=== PATIENT | female | born 1990 | race Caucasian/White ===

== ENCOUNTER 2019-06-18 17:16 | Emergency (ER) | payer OTHER ==
[~2019-06-18 17:16] MED LIST: Iopamidol-370 76% 500 ML 1 ML ONE
[2019-06-18 18:23] LABS: #Basophils 0.1 thou/uL (0.0-0.2); #Eosinphils 0.1 thou/uL (0.0-0.7); #Lymphocytes 2.4 thou/uL (1.20-3.40); #Monocytes 0.7 thou/uL (0.11-0.59); #Neutrophils 9.5 thou/uL (1.40-6.50); %Basophils 0.7 % (0.0-1.0); %Eosinophils 0.5 % (0.0-10.0); %Lymphocytes 18.9 % (21.0-51.0); %Monocytes 5.1 % (0.0-10.0); %Neutrophils 74.7 % (42.0-75.0); Hemoglobin 13.4 g/dL (12.0-16.0); Mean Corpuscular HGB CONC 32.7 g/dL (32.0-36.0); Mean Corpuscular Hemoglobin 25.7 pg (27.0-31.0); Mean Corpuscular Volume 78.5 fL (78.0-98.0); Mean Platelet Volume 6.8 fL (7.4-10.4); Platelet Count 442 thou/uL (130-400); Red Blood Cell (RBC) Count 5.23 mill/uL (4.20-5.40); White Blood Cell (WBC) Count 12.8 thou/uL (4.8-10.8)
[2019-06-18] MEDS ORDERED: Ondansetron PF 4 MG/2 ML Vial ONE (18:30)
[2019-06-18 18:32] LABS: PTT 28.1 SEC (22.9-36.1); Prothrombin Time 13.1 SEC (12.0-14.7)
[2019-06-18 18:44] LABS: BHCG - Serum Negative (NEGATIVE); Pregs Control Background? CLEAR/WHITE (CLR/WHITE); Pregs Control Bar Appear? YES (CONTROL BAR)
[2019-06-18 18:45] LABS: ALT (SGPT) 11 U/L (8-55); AST (SGOT) 15 U/L (5-34); Albumin 4.4 g/dL (3.5-5.0); Alkaline Phosphatase 59 U/L (40-110); Anion Gap 15 mmol/L (10-20); BUN (Urea Nitrogen) 9 mg/dL (7.0-18.7); Bilirubin, Total 0.4 mg/dL (0.2-1.2); Calc. Creatinine Clearance 0 mL/min (70-130); Calcium 10.2 mg/dL (7.8-10.44); Carbon Dioxide 21 mmol/L (22-29); Chloride 106 mmol/L (98-107); Estimated GFR-MDRD 87; Globulin 3.2 g/dL (2.4-3.5); Glucose 96 mg/dL (70-105); Potassium 4.2 mmol/L (3.5-5.1); Protein, Total 7.6 g/dL (6.0-8.3); Sodium 138 mmol/L (136-145)
[2019-06-18] MEDS ORDERED: Acetaminophen 500 MG TAB ONE (18:54)
--- NOTE | 2019-06-18 19:47 | CT ---
CTA Angio Head W WO Con History: Recent vertebral artery dissection. Comparison: None. Findings: CT angiogram of the head and neck performed after the intravenous administration of contras t. 3D rendering provided. The left vertebral artery is dominant. There is a focal dissection of the left vertebral artery at th e level of C2 transverse foramen extending to the C1 foramen and intradural component. The basilar artery is attenuated. 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 The [place] is patent. No stenosis, thrombosis, nor aneurysm of the [place]. Absent right A1 segment with right A2 fed by the anterior communicating artery. There are bilateral posterior communicating arteries. Internal carotid arteries are patent. No cervical spine fracture. Impression: 1. 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 2. Normal variant right vertebral artery terminating within the PICA. 3. No dissection of the carotid arteries. Transcribed Date/Time: 06/18/2019 8:05 PM
--- NOTE | 2019-06-18 19:50 | CT ---
CT Brain WO Con History: Vertebral artery dissection. Headache Comparison: None. Findings: No acute hemorrhage or infarct. No midline shift or mass effect. Ventricular size and extra -axial CSF spaces are normal. Calvarium is intact. Air-fluid level within the right maxillary sinus. Focal area of hypoattenuation right posterior cereb ellum axial image 10. Impression: 1. No acute hemorrhage. 2. Focal hypoattenuation within the right cerebellum axial image 10 as well as within the right [place]. MRI recommended for further evaluation given history. Transcribed Date/Time: 06/18/2019 8:03 PM
[2019-06-18] MEDS ORDERED: Aspirin 325 MG TAB ONE (20:10)
[2019-06-18] MEDS ORDERED: Metoclopramide HCl 10 MG/2 ML VIAL ONE (20:21)
[2019-06-18] MEDS ORDERED: diphenhydrAMINE 50 MG/ML VIAL ONE (20:21)
== END 2019-06-18 23:35 | disposition short-term general hospital (02) ==
LOC: ERS 17:16
DX: I63.9 Cerebral infarction, unspecified (principal); I77.74 Dissection of vertebral artery
CPT/HCPCS: 36415; 70450; 70496; 70498; 80053; 84703; 85025; 85610; 85730; 93005; 96365; 96366; 96375; J1200; J2405; J2765; Q9967